=== PATIENT | female | born 1970 | race Two or more races ===

== ENCOUNTER → 2017-04-16 | Outpatient (CLI) | payer BC ==
[2017-04-16 13:29] LABS: EKG EKG PERFORMED
[2017-04-16 14:00] LABS: Basophils # (A) 0.1 k/uL (0-0.2); Basophils % (A) 1 %; CH 30.7; CHCM 32.1; Eosinophils # (A) 0.2 k/uL (0-0.7); Eosinophils % (A) 3 %; HCT 39.7 % (34.0-46.0); HDW 2.19; HGB 13.4 gm/dL (11.4-16.0); Luc # (Auto) 0.21; Luc % (Auto) 3; Lymphocytes % (A) 31 %; MCH 32.4 pg (25.0-35.0); MCHC 33.7 g/dL (31.0-37.0); MCV 96.1 fL (80.0-100.0); Mean Platelet Volume 8.5; Monocytes # (A) 0.4 k/uL (0-1.0); Monocytes % (A) 7 %; Neutrophils # (A) 3.6 k/uL (1.3-7.7); Neutrophils % (A) 55 %; RBC 4.13 m/uL (3.80-5.40); RDW 12.9 % (11.5-15.5); WBC 6.5 k/uL (3.8-10.6); WBC (Perox) 6.85
[2017-04-16 14:13] LABS: Anion Gap 8 mmol/L; Blood Urea Nitrogen 14 mg/dL (7-17); Carbon Dioxide 27 mmol/L (22-30); Chloride 105 mmol/L (98-107); Glucose 87 mg/dL (74-99); Non-African American GFR(MDRD) >60 (>60 ml/min/1.73 sqM); Potassium 4.1 mmol/L (3.5-5.1); Sodium 140 mmol/L (137-145)
== END | disposition home or self-care (01) ==
LOC: LABPAT 13:19
PROVIDERS: ATTEND Obstetrics & Gynecology
DX: Z01.810 Encounter for preprocedural cardiovascular examination (principal); Z01.812 Encounter for preprocedural laboratory examination; I10 Essential (primary) hypertension; N81.10 Cystocele, unspecified
CPT/HCPCS: 36415; 80051; 82565; 82947; 84520; 85025; 86850; 86900; 86901; 87077; 87086; 87186; 93005

== ENCOUNTER 2017-04-20 21:24 | Emergency (ER) | payer BC ==
[2017-04-20] MEDS ORDERED: diphenhydrAMINE 50 MG/ML 1 ML VIAL IVP STA (21:36)
[2017-04-20] MEDS ORDERED: FAMOTIDINE 20 MG/2 ML VIAL IV STA (21:36)
[2017-04-20] MEDS ORDERED: methylPREDNISolone SOD SUCCI 125 MG/2 ML VIAL IV STA (21:36)
--- NOTE | 2017-04-20 21:40 | ED ---
Allergic Reaction HPI - General Chief complaint: Allergic Reaction Stated complaint: Allergic reaction/Chest tightness Time Seen by Provider: 04/20/17 21:32 Source: patient, RN notes reviewed Mode of arrival: ambulatory Limitations: no limitations - History of Present Illness Initial Comments: This is a 38-year-old female who states she is supposed to be undergoing bladder suspension surgery in 3 days who was given Bactrim for the treatment of cold symptoms who took her first dose around noon today started developing redness itching and a fever at times he started taking the second dose. No nausea no vomiting feels some chest heaviness. She denies any chills or sweats no cough or phlegm production she didn't rhinorrhea nonproductive cough no phlegm production no dysuria hematuria no prior ALLERGIES to Bactrim MD Complaint: allergic reaction - Related Data Home Medications Medication Instructions Recorded Confirmed Levothyroxine Sodium [Tirosint] 150 mcg PO DAILY 04/20/17 04/20/17 Losartan Potassium [Cozaar] 50 mg PO DAILY 04/20/17 04/20/17 Sulfamethox-Tmp 800-160Mg [Bactrim 1 tab PO Q12HR 04/20/17 04/20/17 DS 800-160 mg] Previous Rx's Medication Instructions Recorded Famotidine [Pepcid] 20 mg PO BID #10 tablet 04/20/17 predniSONE 20 mg PO BID #10 tab 04/20/17 Allergies Allergy/AdvReac Type Severity Reaction Status Date / Time No Known Allergies Allergy Verified 04/20/17 21:54 Review of Systems ROS Statement: Those systems with pertinent positive or pertinent negative responses have been documented in the HPI. ROS Other: All systems not noted in ROS Statement are negative. Past Medical History Past Medical History: Hypertension History of Any Multi-Drug Resistant Organisms: None Reported Past Surgical History: Cholecystectomy, Hysterectomy Additional Past Surgical History / Comment(s): cone biopsy Past Psychological History: No Psychological Hx Reported Smoking Status: Former smoker Past Alcohol Use History: None Reported Past Drug Use History: None Reported General Exam - General Exam Comments Initial Comments: This is a well-developed well-nourished awake alert oriented 3 female Limitations: no limitations General appearance: alert, anxious Head exam: Present: atraumatic, normocephalic, normal inspection Eye exam: Present: normal appearance, PERRL, EOMI. Absent: scleral icterus, conjunctival injection, periorbital swelling ENT exam: Present: other (Mild posterior pharyngeal hyperemia no exudate seen) Neck exam: Present: normal inspection, full ROM, other (No stridor JVD or bruits ). Absent: tenderness, meningismus, lymphadenopathy Respiratory exam: Present: decreased breath sounds Cardiovascular Exam: Present: normal rhythm, tachycardia, normal heart sounds. Absent: systolic murmur, diastolic murmur, rubs, gallop, clicks GI/Abdominal exam: Present: soft, normal bowel sounds. Absent: distended, tenderness, guarding, rebound, rigid Rectal exam: Present: deferred Extremities exam: Present: normal inspection, full ROM, normal capillary refill. Absent: tenderness, pedal edema, joint swelling, calf tenderness Back exam: Present: full ROM. Absent: tenderness, CVA tenderness (R), CVA tenderness (L), paraspinal tenderness Neurological exam: Present: alert, oriented X3, CN II-XII intact Psychiatric exam: Present: normal affect, normal mood Skin exam: Present: warm, dry, intact, rash Course Vital Signs 04/20/17 04/20/17 21:26 21:57 Temperature 101.3 F H Pulse Rate 111 H 104 H Respiratory 20 18 Rate Blood Pressure 162/85 162/89 O2 Sat by Pulse 97 97 Oximetry Medical Decision Making - Medical Decision Making I did reevaluate patient several occasions she is feeling much improved she does feel tired thus far except for the history of upper respiratory symptoms no source of infection is found the flu swabs are negative. He can be discharged we will withhold antibiotics at this time she'll be placed on appropriate medication for the ALLERGIC reaction. We did discuss the avoidance of heat and using cool compresses or cool environments when necessary. She is a follow-up with her doctor regarding the surgery in 3 days - Lab Data Result diagrams: 04/20/17 21:58 04/20/17 21:58 Lab Results 04/20/17 04/20/17 04/20/17 Range/Units 21:35 21:58 21:58 WBC 9.9 (3.8-10.6) k/uL RBC 4.37 (3.80-5.40) m/uL Hgb 13.6 (11.4-16.0) gm/dL Hct 42.0 (34.0-46.0) % MCV 96.1 (80.0-100.0) fL MCH 31.0 (25.0-35.0) pg MCHC 32.3 (31.0-37.0) g/dL RDW 13.5 (11.5-15.5) % Plt Count 183 (150-450) k/uL Neutrophils % 81 % Lymphocytes % 9 % Monocytes % 4 % Eosinophils % 4 % Basophils % 0 % Neutrophils # 8.0 H (1.3-7.7) k/uL Lymphocytes # 0.9 L (1.0-4.8) k/uL Monocytes # 0.4 (0-1.0) k/uL Eosinophils # 0.4 (0-0.7) k/uL Basophils # 0.0 (0-0.2) k/uL Sodium (137-145) mmol/L Potassium (3.5-5.1) mmol/L Chloride (98-107) mmol/L Carbon Dioxide (22-30) mmol/L Anion Gap mmol/L BUN (7-17) mg/dL Creatinine (0.52-1.04) mg/dL Est GFR (MDRD) Af Amer (>60 ml/min/1.73 sqM) Est GFR (MDRD) Non-Af (>60 ml/min/1.73 sqM) Glucose (74-99) mg/dL Calcium (8.4-10.2) mg/dL Magnesium (1.6-2.3) mg/dL Total Bilirubin (0.2-1.3) mg/dL AST (14-36) U/L ALT (9-52) U/L Alkaline Phosphatase (38-126) U/L Total Creatine Kinase 38 (30-135) U/L CK-MB (CK-2) 0.6 (0.0-2.4) ng/mL CK-MB (CK-2) Rel Index 1.6 Troponin I <0.012 (0.000-0.034) ng/mL Total Protein (6.3-8.2) g/dL Albumin (3.5-5.0) g/dL Influenza Type A RNA Not Detected (Not Detectd) Influenza Type B (PCR) Not Detected (Not Detectd) 04/20/17 Range/Units 21:58 WBC (3.8-10.6) k/uL RBC (3.80-5.40) m/uL Hgb (11.4-16.0) gm/dL Hct (34.0-46.0) % MCV (80.0-100.0) fL MCH (25.0-35.0) pg MCHC (31.0-37.0) g/dL RDW (11.5-15.5) % Plt Count (150-450) k/uL Neutrophils % % Lymphocytes % % Monocytes % % Eosinophils % % Basophils % % Neutrophils # (1.3-7.7) k/uL Lymphocytes # (1.0-4.8) k/uL Monocytes # (0-1.0) k/uL Eosinophils # (0-0.7) k/uL Basophils # (0-0.2) k/uL Sodium 138 (137-145) mmol/L Potassium 4.3 (3.5-5.1) mmol/L Chloride 102 (98-107) mmol/L Carbon Dioxide 28 (22-30) mmol/L Anion Gap 8 mmol/L BUN 12 (7-17) mg/dL Creatinine 0.83 (0.52-1.04) mg/dL Est GFR (MDRD) Af Amer >60 (>60 ml/min/1.73 sqM) Est GFR (MDRD) Non-Af >60 (>60 ml/min/1.73 sqM) Glucose 108 H (74-99) mg/dL Calcium 9.6 (8.4-10.2) mg/dL Magnesium 1.8 (1.6-2.3) mg/dL Total Bilirubin 0.3 (0.2-1.3) mg/dL AST 18 (14-36) U/L ALT 30 (9-52) U/L Alkaline Phosphatase 47 (38-126) U/L Total Creatine Kinase (30-135) U/L CK-MB (CK-2) (0.0-2.4) ng/mL CK-MB (CK-2) Rel Index Troponin I (0.000-0.034) ng/mL Total Protein 7.3 (6.3-8.2) g/dL Albumin 4.3 (3.5-5.0) g/dL Influenza Type A RNA (Not Detectd) Influenza Type B (PCR) (Not Detectd) - EKG Data -: EKG Interpreted by Me EKG shows normal: sinus rhythm (Sinus rhythm rate of 101 KS interval 150 to QRS 86 QT since QTC of 344/446 nonspecific T-wave configuration) - Radiology Data Radiology results: report reviewed (I did review the imaging and reports no acute findings), image reviewed Disposition Clinical Impression: Allergic reaction, Adverse reaction to drug, Fever Disposition: HOME SELF-CARE Condition: Good Instructions: Antibiotic Medication Allergy (ED), Cold Compress or Soak (ED) Additional Instructions: Spgf-esd-qhdoahv Benadryl 25 mg every 6 hours when necessary for the ALLERGIC reaction. Prescriptions: Famotidine [Pepcid] 20 mg PO BID #10 tablet predniSONE 20 mg PO BID #10 tab Referrals: Rachell Orozco MD [Primary Care Provider] - 1-2 days
[2017-04-20 22:03] VITALS: RESP 18
[2017-04-20 22:09] LABS: Basophils % (A) 0 %; CH 31.3; CHCM 32.8; Eosinophils # (A) 0.4 k/uL (0-0.7); Eosinophils % (A) 4 %; HDW 2.16; HGB 13.6 gm/dL (11.4-16.0); Luc # (Auto) 0.07; Luc % (Auto) 1; Lymphocytes # (A) 0.9 k/uL (1.0-4.8); Lymphocytes % (A) 9 %; MCHC 32.3 g/dL (31.0-37.0); MCV 96.1 fL (80.0-100.0); Mean Platelet Volume 8.4; Monocytes # (A) 0.4 k/uL (0-1.0); Monocytes % (A) 4 %; Neutrophils % (A) 81 %; RBC 4.37 m/uL (3.80-5.40); RDW 13.5 % (11.5-15.5); WBC 9.9 k/uL (3.8-10.6)
[2017-04-20] MEDS ORDERED: IBUPROFEN 800 MG TAB PO STA (22:09)
[2017-04-20 22:19] LABS: ALT 30 U/L (9-52); AST 18 U/L (14-36); Alkaline Phosphatase 47 U/L (38-126); Anion Gap 8 mmol/L; Blood Urea Nitrogen 12 mg/dL (7-17); Calcium 9.6 mg/dL (8.4-10.2); Carbon Dioxide 28 mmol/L (22-30); Chloride 102 mmol/L (98-107); Glucose 108 mg/dL (74-99); Magnesium 1.8 mg/dL (1.6-2.3); Non-African American GFR(MDRD) >60 (>60 ml/min/1.73 sqM); Potassium 4.3 mmol/L (3.5-5.1); Sodium 138 mmol/L (137-145); Total Bilirubin 0.3 mg/dL (0.2-1.3); Total Protein 7.3 g/dL (6.3-8.2)
--- NOTE | 2017-04-20 22:22 | XR ---
EXAMINATION TYPE: XR chest 2V DATE OF EXAM: 04/20/2017 COMPARISON: NONE HISTORY: Cough and swelling TECHNIQUE: Frontal and lateral views of the chest are obtained. FINDINGS: Heart and mediastinum are normal. Lungs are clear of consolidation. There are small linear density in the left midlung. There is no pleural effusion. Bony thorax is intact. IMPRESSION: Minimal subsegmental atelectasis on the left side. Normal heart.
[2017-04-20 22:27] LABS: Creatine Kinase 38 U/L (30-135)
[2017-04-20 22:40] LABS: Creatine Kinase MB 0.6 ng/mL (0.0-2.4); Troponin I <0.012 ng/mL (0.000-0.034)
[2017-04-20] MEDS ORDERED: SODIUM CHLORIDE 0.9% 500 ML IV STA (22:44)
[2017-04-20 23:18] VITALS: BP 132/73; PULSE 100
[2017-04-20 23:24] VITALS: TEMP 102.2
[2017-04-20] MEDS ORDERED: ACETAMINOPHEN TAB 500 MG TAB PO STA (23:25)
--- NOTE | 2017-04-20 23:25 | ED ---
Medical Decision Making - Lab Data Result diagrams: 04/20/17 21:58 04/20/17 21:58 Lab Results 04/20/17 04/20/17 04/20/17 Range/Units 21:35 21:58 21:58 WBC 9.9 (3.8-10.6) k/uL RBC 4.37 (3.80-5.40) m/uL Hgb 13.6 (11.4-16.0) gm/dL Hct 42.0 (34.0-46.0) % MCV 96.1 (80.0-100.0) fL MCH 31.0 (25.0-35.0) pg MCHC 32.3 (31.0-37.0) g/dL RDW 13.5 (11.5-15.5) % Plt Count 183 (150-450) k/uL Neutrophils % 81 % Lymphocytes % 9 % Monocytes % 4 % Eosinophils % 4 % Basophils % 0 % Neutrophils # 8.0 H (1.3-7.7) k/uL Lymphocytes # 0.9 L (1.0-4.8) k/uL Monocytes # 0.4 (0-1.0) k/uL Eosinophils # 0.4 (0-0.7) k/uL Basophils # 0.0 (0-0.2) k/uL Sodium (137-145) mmol/L Potassium (3.5-5.1) mmol/L Chloride (98-107) mmol/L Carbon Dioxide (22-30) mmol/L Anion Gap mmol/L BUN (7-17) mg/dL Creatinine (0.52-1.04) mg/dL Est GFR (MDRD) Af Amer (>60 ml/min/1.73 sqM) Est GFR (MDRD) Non-Af (>60 ml/min/1.73 sqM) Glucose (74-99) mg/dL Calcium (8.4-10.2) mg/dL Magnesium (1.6-2.3) mg/dL Total Bilirubin (0.2-1.3) mg/dL AST (14-36) U/L ALT (9-52) U/L Alkaline Phosphatase (38-126) U/L Total Creatine Kinase 38 (30-135) U/L CK-MB (CK-2) 0.6 (0.0-2.4) ng/mL CK-MB (CK-2) Rel Index 1.6 Troponin I <0.012 (0.000-0.034) ng/mL Total Protein (6.3-8.2) g/dL Albumin (3.5-5.0) g/dL Influenza Type A RNA Not Detected (Not Detectd) Influenza Type B (PCR) Not Detected (Not Detectd) 04/20/17 Range/Units 21:58 WBC (3.8-10.6) k/uL RBC (3.80-5.40) m/uL Hgb (11.4-16.0) gm/dL Hct (34.0-46.0) % MCV (80.0-100.0) fL MCH (25.0-35.0) pg MCHC (31.0-37.0) g/dL RDW (11.5-15.5) % Plt Count (150-450) k/uL Neutrophils % % Lymphocytes % % Monocytes % % Eosinophils % % Basophils % % Neutrophils # (1.3-7.7) k/uL Lymphocytes # (1.0-4.8) k/uL Monocytes # (0-1.0) k/uL Eosinophils # (0-0.7) k/uL Basophils # (0-0.2) k/uL Sodium 138 (137-145) mmol/L Potassium 4.3 (3.5-5.1) mmol/L Chloride 102 (98-107) mmol/L Carbon Dioxide 28 (22-30) mmol/L Anion Gap 8 mmol/L BUN 12 (7-17) mg/dL Creatinine 0.83 (0.52-1.04) mg/dL Est GFR (MDRD) Af Amer >60 (>60 ml/min/1.73 sqM) Est GFR (MDRD) Non-Af >60 (>60 ml/min/1.73 sqM) Glucose 108 H (74-99) mg/dL Calcium 9.6 (8.4-10.2) mg/dL Magnesium 1.8 (1.6-2.3) mg/dL Total Bilirubin 0.3 (0.2-1.3) mg/dL AST 18 (14-36) U/L ALT 30 (9-52) U/L Alkaline Phosphatase 47 (38-126) U/L Total Creatine Kinase (30-135) U/L CK-MB (CK-2) (0.0-2.4) ng/mL CK-MB (CK-2) Rel Index Troponin I (0.000-0.034) ng/mL Total Protein 7.3 (6.3-8.2) g/dL Albumin 4.3 (3.5-5.0) g/dL Influenza Type A RNA (Not Detectd) Influenza Type B (PCR) (Not Detectd) Disposition Clinical Impression: Allergic reaction, Adverse reaction to drug, Fever, Upper respiratory infection Disposition: HOME SELF-CARE Condition: Good Instructions: Antibiotic Medication Allergy (ED), Cold Compress or Soak (ED), Upper Respiratory Infection (ED) Additional Instructions: Mbve-dth-awgtznu Benadryl 25 mg every 6 hours when necessary for the ALLERGIC reaction. Prescriptions: Famotidine [Pepcid] 20 mg PO BID #10 tablet predniSONE 20 mg PO BID #10 tab Referrals: Rachell Orozco MD [Primary Care Provider] - 1-2 days
== END 2017-04-20 23:30 | disposition home or self-care (01) ==
LOC: EC 21:24
DX: J06.9 Acute upper respiratory infection, unspecified (principal); T37.0X5A Adverse effect of sulfonamides, initial encounter; I10 Essential (primary) hypertension; Z87.891 Personal history of nicotine dependence; Z79.899 Other long term (current) drug therapy
CPT/HCPCS: 36415; 93005; 80053; 82550; 82553; 83735; 84484; 85025; 87040; 87502; 71020; 99284; 96374; 96375 ×2; J1200; J2930

== ENCOUNTER → 2017-07-24 | Outpatient (CLI) | payer BC ==
--- NOTE | 2017-07-26 12:04 | MM ---
Reason for exam: screening (asymptomatic). Physical Findings: A clinical breast exam by your physician is recommended on an annual basis and results should be correlated with mammographic findings. MG Screening Mammo w CAD Bilateral CC and MLO view(s) were taken. No prior studies available for comparison. There are scattered fibroglandular densities. No suspicious abnormality. No significant changes when compared with prior studies. ASSESSMENT: Negative, BI-RAD 1 RECOMMENDATION: Routine screening mammogram of both breasts in 1 year.
== END | disposition home or self-care (01) ==
LOC: RADMAMWWP 07:51
PROVIDERS: ATTEND Obstetrics & Gynecology
DX: Z12.31 Encounter for screening mammogram for malignant neoplasm of breast (principal)
CPT/HCPCS: 77067

== ENCOUNTER → 2018-09-27 | Outpatient (CLI) | payer BC ==
--- NOTE | 2018-09-28 10:53 | MM ---
Reason for exam: screening (asymptomatic). Last mammogram was performed 1 year and 2 months ago. Physical Findings: A clinical breast exam by your physician is recommended on an annual basis and results should be correlated with mammographic findings. MG Screening Mammo w CAD Bilateral CC and MLO view(s) were taken. Prior study comparison: July 24, 2017, bilateral MG screening mammo w CAD. There are scattered fibroglandular densities. There is no discrete abnormality. No significant changes when compared with prior studies. ASSESSMENT: Negative, BI-RAD 1 RECOMMENDATION: Routine screening mammogram of both breasts in 1 year.
== END | disposition home or self-care (01) ==
LOC: RADMAMWWP 10:42
PROVIDERS: ATTEND Family Medicine
DX: Z12.31 Encounter for screening mammogram for malignant neoplasm of breast (principal)
CPT/HCPCS: 77067

== ENCOUNTER → 2019-10-25 | Outpatient (CLI) | payer BC ==
--- NOTE | 2019-10-25 10:40 | US ---
EXAMINATION TYPE: US thyroid st tissue head/neck DATE OF EXAM: 10/25/2019 COMPARISON: NONE CLINICAL HISTORY: E03.9 Hypothyroidism, R53.83 Fatigue. GLAND SIZE: Right Lobe: 4.3 x 1.5 x 1.2 cm Overall Parenchyma: heterogenous Left Lobe: 2.8 x 1.0 x 1.3 cm Overall Parenchyma: heterogeneous Isthmus Thickness: 0.2 cm NODULES RIGHT: # of nodules measured on right: 1 1. 0.6 x 0.2 x 0.3cm anechoic cystic nodule at the mid pole with well-defined margins. This nodule is wider than tall and shows no intranodular vascularity. No prior LEFT: # of nodules measured on left: 1 1. 1.5 X 0.6 x 1.0 cm hypoechoic mixed nodule at the mid pole with well-defined margins. This nodu le is wider than tall and shows no intranodular vascularity. *No prior ISTHMUS: # of nodules measured in the isthmus: 0 Bilateral neck scanned, no evidence of lymphadenopathy. Heterogeneous small thyroid with particularly small left thyroid lobe. IMPRESSION: No concerning nodules. A left-sided 1.5 cm nodule is predominantly cystic, TR 1 lesion .
== END | disposition home or self-care (01) ==
LOC: RADUSWWP 10:06
PROVIDERS: ATTEND Family Medicine
DX: E04.1 Nontoxic single thyroid nodule (principal); E03.9 Hypothyroidism, unspecified; R53.83 Other fatigue
CPT/HCPCS: 76536

== ENCOUNTER → 2019-12-27 | Outpatient (CLI) | payer BC ==
--- NOTE | 2020-01-01 11:20 | MM ---
Reason for exam: screening (asymptomatic). Last mammogram was performed 1 year and 3 months ago. History: Family history of breast cancer in maternal cousin. Physical Findings: A clinical breast exam by your physician is recommended on an annual basis and results should be correlated with mammographic findings. MG 3D Screening Mammo W/Cad Bilateral CC and MLO view(s) were taken. Prior study comparison: September 27, 2018, bilateral MG screening mammo w CAD. July 24, 2017, bilateral MG screening mammo w CAD. There are scattered fibroglandular densities. No significant changes when compared with prior studies. ASSESSMENT: Negative, BI-RAD 1 RECOMMENDATION: Routine screening mammogram of both breasts in 1 year.
== END | disposition home or self-care (01) ==
LOC: RADMAMWWP 12:13
PROVIDERS: ATTEND Family Medicine
DX: Z12.31 Encounter for screening mammogram for malignant neoplasm of breast (principal)
CPT/HCPCS: 77063; 77067

== ENCOUNTER → 2020-05-10 | Outpatient (CLI) | payer BC | END | disposition home or self-care (01) | LOC: LABWHC1 11:54 | PROVIDERS: ATTEND Family Medicine | DX: Z20.828 Contact with and (suspected) exposure to other viral communicable diseases (principal) | CPT/HCPCS: U0003; C9803 ==

== ENCOUNTER → 2020-08-06 | Outpatient (CLI) | payer BC ==
--- NOTE | 2020-08-06 11:50 | CT ---
EXAMINATION TYPE: CT abdomen w con DATE OF EXAM: 08/06/2020 COMPARISON: None HISTORY: Right side upper abdominal pain x3 weeks CT DLP: 1490 mGycm Automated exposure control for dose reduction was used. TECHNIQUE: Helical acquisition of images was performed from the lung bases through the top of iliac crest to include entire abdomen. CONTRAST: Performed with Oral Contrast and with IV Contrast, patient injected with 100 mL of Isovue 300. FINDINGS: LUNG BASES: Subsegmental changes posteriorly involving the lungs most typical of atelectasis. Heart s ize prominent.. LIVER/GB: Postcholecystectomy changes are seen. PANCREAS: No significant abnormality is seen. SPLEEN: No significant abnormality is seen. ADRENALS: No significant abnormality is seen. KIDNEYS: Hypodensities within the kidneys are subcentimeter and too small to characterize but statist ically most likely related to cysts. BOWEL: No significant abnormality is seen. LYMPH NODES: No significant abnormality is seen. OSSEOUS STRUCTURES: Hypertrophic and degenerative change of the spine. OTHER: Small fat-containing periumbilical hernia. Small hiatal hernia noted. IMPRESSION: 1. Postcholecystectomy changes with no acute process identified.
== END ==
LOC: RADCTMAIN 10:16
PROVIDERS: ATTEND Family Medicine
DX: R10.11 Right upper quadrant pain (principal); Z90.49 Acquired absence of other specified parts of digestive tract
CPT/HCPCS: 74160; Q9967

== ENCOUNTER → 2022-09-08 | Outpatient (CLI) | payer BC ==
--- NOTE | 2022-09-09 07:38 | XR ---
EXAMINATION TYPE: XR Hip RT and AP Pelvis DATE OF EXAM: 09/08/2022 COMPARISON: None HISTORY: Pain radiating down right leg TECHNIQUE: 2 view right hip supplemented with an AP pelvis FINDINGS: Right femoral head articulates with the acetabulum. There is loss of the joint space. Some cam deformity or femoral head remodeling may be present. Some femoral head spurring is present. No ac concepcion fractures are evident. Left femoral head articulate to the acetabulum. Mild joint space narrowing is present. Sacroiliac joints and symphysis pubis are normal Follow up exams can be performed 7-10 d ays of acute trauma for continued pain. IMPRESSION: 1. Moderate to advanced degenerative changes right hip
--- NOTE | 2022-09-09 07:42 | XR ---
EXAMINATION TYPE: XR lumbosacral spine min 4V DATE OF EXAM: 09/08/2022 COMPARISON: None HISTORY: Pain right leg TECHNIQUE: 5 view lumbar spine FINDINGS: There are 5 lumbar-type vertebral bodies. Pedicles are intact. T12 ribs are very rudimentar y. There may be attempted lumbarization of T12. Facet degenerative changes present throughout the lum bar spine. No spondylolytic defects are evident. Mild spondylosis is present. There is degenerative d isc change L5-S1 and L4-5. Posterior disc space narrowing is present L3-4. IMPRESSION: 1. Degenerative disc change within the lower half of the lumbar spine. Follow-up MRI can be performe d as clinically indicated
== END | disposition home or self-care (01) ==
LOC: RADXRMAIN 10:34
PROVIDERS: ATTEND Family Medicine
DX: M16.11 Unilateral primary osteoarthritis, right hip (principal); M51.36 Other intervertebral disc degeneration, lumbar region; R10.2 Pelvic and perineal pain
CPT/HCPCS: 72110; 73502

== ENCOUNTER → 2022-09-30 | Outpatient (CLI) | payer BC ==
[2022-09-30 17:43] LABS: Partial Thromboplastin Time 22.1 sec (22.0-30.0); Prothrombin Time 10.3 sec (9.0-12.0)
[2022-10-01 01:50] LABS: ALT 18 U/L (8-44); AST 14 U/L (13-35); African American GFR (CKD) 112.9 (60.0-200.0); Albumin 4.3 g/dL (3.8-4.9); Albumin/Globulin Ratio 1.85 (1.60-3.17); Alkaline Phosphatase 55 U/L (41-126); Blood Urea Nitrogen 13.4 mg/dL (9.0-27.0); Calcium 9.8 mg/dL (8.7-10.3); Carbon Dioxide 31.5 mmol/L (20.0-27.5); Chloride 103 mmol/L (96-109); Globulin 2.3 g/dL (1.6-3.3); Glucose 100 mg/dL (70-110); Non-African American GFR(CKD) 97.4 (60.0-200.0); Potassium 3.7 mmol/L (3.5-5.5); Sodium 144 mmol/L (135-145); Total Bilirubin <0.15 mg/dL (0.30-1.20); Total Protein 6.6 g/dL (6.2-8.2)
[2022-10-01 02:11] LABS: HCT 39.6 % (37.2-46.3); HGB 13.1 g/dL (12.0-15.0); MCH 31.2 pg (27.0-32.0); MCHC 33.1 g/dL (32.0-37.0); MCV 94.3 fL (80.0-97.0); Mean Platelet Volume 12.1 fL (9.5-12.2); NRBC Per 100 WBC 0 /100 WBCS (0.0-0.0); Platelet Count 212 X 10*3/uL (140-440); RDW 12.7 % (11.5-14.5); WBC 8.61 X 10*3/uL (4.50-10.00)
[2022-10-01 02:12] LABS: Appearance,Urine Cloudy (Clear); Bilirubin,Urine Negative (Negative); Blood,Urine Negative (Negative); Color,Urine Yellow (Yellow); Ketones,Urine Negative (Negative); Nitrite,Urine Negative (Negative); PH, Urine 8.5 (5.0-8.0); Specific Gravity,Urine 1.012 (1.001-1.030); Urobilinogen,Urine 0.2 (0.2,1.0)
[2022-10-01 02:20] LABS: Bacteria,Urine None Seen /HPF (None Seen)
== END | disposition home or self-care (01) ==
LOC: LABPAT 16:16
PROVIDERS: ATTEND Orthopaedic Surgery
DX: Z01.812 Encounter for preprocedural laboratory examination (principal); M16.11 Unilateral primary osteoarthritis, right hip
CPT/HCPCS: 80053; 81001; 83036; 85027; 85610; 85730; 87070

== ENCOUNTER 2022-10-09 08:42 | Day surgery (SDC) | payer BC ==
[2022-10-05 12:05] VITALS: BMI 34.3
[~2022-10-09 08:42] MED LIST: ACETAMINOPHEN TAB 500 MG TAB PO PRN; DEXAMETHASONE SOD PHOSPHATE 10 MG/ML 1 ML VIAL IV PRN; DOCUSATE 100 MG CAP PO PRN; FAMOTIDINE 20 MG/2 ML VIAL IVP PRN; HYDROmorphone 0.5 MG/0.5 ML SYRINGE IVP PRN; KETOROLAC 15 MG/ML 1 ML VIAL IVP PRN; LACTATED RINGERS 1,000 ML IV SCH; MIDAZOLAM 2 MG/2 ML VIAL IV PRN; ONDANSETRON 4 MG/2 ML VIAL IVP PRN; ROPIVACAINE/EPI/CLONIDINE/KET 50 ML SYRINGE MISCELLANE PRN; TRANEXAMIC ACID IN NACL,ISO-OS 1,000 MG in SALINE 1 100ML.BAG IV PRN; TRANEXAMIC ACID IN NACL,ISO-OS 1,000 MG in SALINE 1 100ML.BAG IVPB PRN; oxyCODONE ER 10 MG TAB.ER.12H PO PRN
[2022-10-09 09:03] VITALS: BP 131/78; PULSE 91; RESP 18; TEMP 97.5
== END 2022-10-09 11:08 | disposition home or self-care (01) ==
LOC: OR 08:42
PROVIDERS: ATTEND Orthopaedic Surgery
DX: Z53.9 Procedure and treatment not carried out, unspecified reason (principal); M16.11 Unilateral primary osteoarthritis, right hip
CPT/HCPCS: 86900; 86901; 86850; J1100; J2405; J1885

== ENCOUNTER 2022-10-16 09:33 | Day surgery (SDC) | payer BC ==
[~2022-10-16 09:33] MED LIST changes: -LACTATED RINGERS 1,000 ML IV SCH
[2022-10-16] MEDS: LACTATED RINGERS 1,000 ML IV SCH ×2 (10:00→15:06)
[2022-10-16] MEDS ORDERED: DEXAMETHASONE SOD PHOSPHATE 4 MG/ML 1 ML VIAL IVP ONE (10:31)
[2022-10-16] MEDS ORDERED: MIDAZOLAM 2 MG/2 ML VIAL IVP ONE (10:39)
[2022-10-16] MEDS ORDERED: DEXAMETHASONE SOD PHOSPHATE 4 MG/ML 1 ML VIAL ONE (10:56)
[2022-10-16] MEDS ORDERED: LIDOCAINE 2% INJ 20 MG/ML (2 ML VIAL) ONE (10:56)
[2022-10-16] MEDS ORDERED: PHENYLEPHRINE-0.9% NACL SYG 1,000 MCG/10 ML SYRINGE ONE (10:56)
[2022-10-16] MEDS ORDERED: ROPIVACAINE 5 MG/ML 30 ML VIAL ONE (10:56)
[2022-10-16] MEDS ORDERED: TRANEXAMIC ACID IN NACL,ISO-OS 1,000 MG/100 ML BAG ONE (10:56)
[2022-10-16] MEDS ORDERED: GLYCOPYRROLATE 0.2 MG/ML 2 ML VIAL ONE (10:56)
[2022-10-16] MEDS ORDERED: NEOSTIGMINE 1 MG/ML 10 ML VIAL ONE (10:56)
[2022-10-16] MEDS ORDERED: ROCURONIUM 10 MG/ML (5 ML VIAL) IV ONE (10:56)
[2022-10-16] MEDS ORDERED: SUCCINYLCHOLINE CHLORIDE 200 MG/10 ML VIAL IV ONE (10:56)
[2022-10-16] MEDS ORDERED: PROPOFOL 10 MG/ML 20 ML VIAL IV ONE (10:56)
[2022-10-16] MEDS ORDERED: fentaNYL (PF) 50 MCG/ML 2 ML AMP ONE (10:56)
--- NOTE | 2022-10-16 11:49 | P.ANPRN ---
Procedure Note - Anesthesia - Nerve Block Performed Right James Single Time Out Performed: Yes Date of Procedure: 10/16/22 Procedure Start Time: 10:38 Procedure Stop Time: 10:45 Location of Patient: PreOp Indication: Acute Post-Operative Pain, Requested by Surgeon Sedation Type: Sedate with meaningful contact maintained Preparation: Sterile Prep, Sterile Dressing Position: Supine Catheter: None Needle Types: Facet Needle Gauge: 20 Ultrasound used to visualize needle placement: Yes Ultrasound used to observe medication spread: Yes Injectate: 0.5% Ropivacaine (see comment for volume) (30 ml + decadron 4 mg) Blood Aspirated: No Pain Paresthesia on Injection Noted: No Resistance on Injection: Normal Image Stored and Saved: Yes Events: Uneventful and Well Tolerated
[2022-10-16] MEDS ORDERED: LACTATED RINGERS 1,000 ML IV ONE (12:32)
--- NOTE | 2022-10-16 13:02 | FL ---
EXAMINATION TYPE: FL guidance operating room, XR Hip Limited RT DATE OF EXAM: 10/16/2022 CLINICAL HISTORY: Right hip pain and osteoarthritis TECHNIQUE: Fluoroscopy. Intraoperative limited views right hip. COMPARISON: Pelvic and right hip x-ray September 08, 2022. FINDINGS: Fluoroscopic guidance was provided during right hip replacement procedure performed by Dr. Andino. A total of 32 seconds of fluoroscopic time was utilized during the procedure and 6 spot i mages was acquired. Total dose area product (DAP) in uGy*m?, mGy*cm? (or similar: 1.4210. Images acquired show metallic hardware from right hip arthroplasty satisfactory in position on fronta l projection. IMPRESSION: As Above.
[2022-10-16] MEDS ORDERED: HYDROmorphone 1 MG/ML 1 ML SYRINGE IVP PRN (13:31)
[2022-10-16] MEDS ORDERED: hydrOXYzine pamoate 25 MG CAP PO PRN (13:31)
[2022-10-16] MEDS ORDERED: ONDANSETRON 4 MG/2 ML VIAL IVP PRN (13:31)
[2022-10-16] MEDS ORDERED: NALOXONE 0.4 MG/ML 1 ML VIAL IV PRN (13:31)
[2022-10-16] MEDS ORDERED: HYDROmorphone 0.5 MG/0.5 ML SYRINGE IVP PRN ×2 (13:31)
--- NOTE | 2022-10-16 13:40 | P.OP ---
Date of Procedure: 10/16/22 Preoperative Diagnosis: Severe right hip osteoarthritis Postoperative Diagnosis: Same Procedure(s) Performed: 1. Right direct anterior total hip arthroplasty 2. Application of negative pressure incisional wound VAC, right hip, less than 50 cm, including DME (33506) Implants: 1. Damaris Trident II Acetabular Cup, Size #50 2. [place] Insignia Size # 3 Femoral Stem, Standard Offset 3. Biolox delta femoral head, 36 mm, +0 neck Anesthesia: MARK, regional Surgeon: Saul Andino Mill Roll Rewinder #1: Garrison Baker Estimated Blood Loss (ml): 200 IV fluids (ml): 1,200 Pathology: none sent Condition: stable Disposition: PACU Indications for Procedure: I had a long discussion with the patient in the office on the potential risks and complications of an elective total hip replacement through a direct anterior approach. Risks discussed include, but are certainly not limited to, risks from anesthesia, superficial infection requiring local wound care or antibiotics, deep kasey-prosthetic joint infection and the treatment required to eradicate infection, intraoperative fracture, postoperative periprosthetic fracture, damage to local blood vessels or nerves particularly the lateral femoral cutaneous nerve, delayed wound healing requiring local wound care or possibly surgical debridement, hip dislocation, leg length discrepancy, soft tissue irritation around the total hip implant such as iliopsoas tendinitis or trochanteric bursitis, wear and osteolysis from the implants, squeaking or audible noises, groin pain, thigh pain, heterotopic ossification, stiffness, aseptic loosening of the implants, dissatisfaction with surgical outcome, need for revision surgery, DVT, PE, swelling of the operative extremity, acute coronary event, stroke, failure to thrive, and possibly loss of life or limb. The patient understands that while these are the most common complications after an elective hip replacement there are certainly other less common complications possible. They were given ample time to ask questions regarding the potential complications of a hip replacement. Following our discussion the patient provided their verbal and written consent to go forward with an elective total hip replacement. Operative Findings: Severe right hip arthritis Description of Procedure: The patient was identified in the preoperative holding area and the correct hip was marked with my initials. I reviewed the procedure and consent with the patient. All of their questions were answered. The patient was then brought back into the operating room by anesthesia. While on the [facility] anesthesia was administered by the anesthesia team. Preoperative antibiotics and tranexamic acid were also given. After the patient was under anesthesia I examined their ankles to determine their preoperative leg length discrepancy. The skin over the anterior aspect of the hip was shaved to remove hair over the site of planned incision. Both feet and ankles were padded with webril and boots for the [place] were applied. The patient was then carefully transferred onto the [place] table. A perineal post was immediately placed. The arms were placed on arm holders and were well-padded. Both boots were secured to the spars on the [place] table. The patient was positioned so that the pelvis was centered over the post. Nonsterile drapes were applied. A timeout was performed identifying the correct patient, operative extremity, and procedure. At this point fluoroscopy was brought in to take preoperative images of the pelvis and operative hip. Using the standing AP pelvis from the office as a template, a comparable image was obtained with fluoroscopy. A metallic bar was used to create a bi-ischial line for use as a reference to leg length adjustments during the procedure. Global offset was also measured on both the operative and nonoperative leg. Fluoroscopy was then brought out and a pre-scrub using a chlorhexidine scrub brush was performed. The operative limb was then prepped and draped in the standard sterile fashion. An anterior longitudinal incision was made lateral and distal to the ASIS. The skin and subcutaneous tissues were incised sharply. The underlying tensor fascia was identified and incised in its midportion. The fascia was dissected free from the underlying muscle and the muscle belly was retracted. A blunt tipped cobra retractor was placed over the superior neck under the muscle fibers of the gluteus minimus. The deep enveloping fascia of the tensor was incised. The anterior leash of vessels were then identified and cauterized. The fascia between the rectus and the capsule was then incised and the pre-capsular fat was excised. A second Cobra was placed inferior to the neck. The interval between the rectus and iliocapsularis and the hip capsule was developed and a retractor was placed carefully over the anterior rim of the acetabulum. A T-shaped anterior capsulotomy was performed. The superior capsular leaflet was left in place in the inferior capsular flap was excised. The Cobra retractors were placed intracapsularly. We then made a femoral neck osteotomy according to preoperative and intraoperative templating and confirmed the level of the osteotomy using fluoroscopic imaging. The femoral head was removed, passed off to the back table, and sized. The superior capsular flap was excised. Retractors were placed circumferentially exposing the acetabulum. We then circumferentially debrided the acetabulum free of labrum and osteophytes. The pulvinar was removed to fully visualize the cotyloid fossa. We then sequentially reamed to achieve peripheral fit and excellent bleeding subchondral bone. The socket was thoroughly irrigated. The acetabular component was impacted into the appropriate position using fluoroscopy to guide version, inclination, and depth of insertion taking care to have a comparable image of the AP pelvis to the standing image taken in the office. An excellent press-fit was achieved and final position was confirmed using fluoroscopy. The press fit was augmented with bony cancellus dome screws. The liner was then impacted into the socket. Attention was then turned to the femur. The remnant dorsal lateral capsule was excised. The short external rotators were visible and protected. A bone hook was used to confirm appropriate translation of the trochanter away from the acetabulum. The leg was then extended and adducted and the bone hook was used to elevate the femur for broaching. A box osteotome and blunt tipped canal sound was then utilized to gain access to the femoral canal. We then sequentially broached the femur in appropriate anteversion until excellent torsional stability was achieved. The neck cut was brought flush to the trial broach with a calcar planar. A trial neck and head were then placed onto the broach and the hip was atraumatically reduced under direct visualization. External rotation to 90 was performed to assess stability. Fluoroscopy was brought in. An AP and lateral fluoroscopic image of the proximal femur was obtained to assess position and fill of the trial broach. An AP of the pelvis was then obtained and matched to the preoperative image taken. A bi-ischial bar was then placed and measurements were taken to assess changes in length and offset. The hip was then carefully dislocated, the proximal femur was exposed, and the trial implants were removed. The wound and proximal femur was thoroughly irrigated using sterile saline and pulsatile lavage. The final femoral implant was dispensed and gently tapped into place generating an excellent press-fit. The trunnion was cleansed and the final head was tapped into place to engage the Felder taper. The acetabulum was irrigated and visuali zed to be free of debris. The hip was carefully reduced. Stability was checked clinically with external rotation to 90 and there was no evidence of instability. Final fluoroscopic images were taken. The wound was then thoroughly irrigated and soaked with a dilute Betadine rinse for 3 minutes. 3 L of sterile saline was irrigated through the wound using pulsatile lavage. Local anesthetic cocktail was injected into the soft tissues around the surgical field. A deep drain was placed. The wound was then closed in layers. A sterile dressing was placed over the surgical incision and drain site. The drapes were taken down and the patient was carefully transferred off of the [place] table. Following removal of the boots the leg lengths felt acceptable. The patient was then taken to recovery room having tolerated the procedure well. Garrison Baker PA-C was required as a skilled management assistant for patient positioning, surgical exposure, retraction, placement of implants, and closure of the surgical wound. PLAN: The patient can weight-bear as tolerated on the operative extremity. 2 doses of postoperative antibiotics. DVT prophylaxis with aspirin 81 mg twice a day based on preoperative risk stratification. Physical therapy for gait training. Discontinue drain postoperative day #1 if output is less than 100 mL per shift.
[2022-10-16] MEDS ORDERED: ONDANSETRON 4 MG/2 ML VIAL IVP ONE (13:51)
[2022-10-16] MEDS ORDERED: droPERidol 5 MG/2 ML VIAL IVP ONE (13:58)
[2022-10-16] MEDS: SENNOSIDES-DOCUSATE SODIUM 1 EACH TAB PO SCH (19:57)
[2022-10-16] MEDS: ASPIRIN 81 MG PO SCH (19:57)
[2022-10-16] MEDS: HYDROcodone/APAP 5-325MG 1 EACH TAB PO PRN (20:11)
[2022-10-17] MEDS: LACTATED RINGERS 1,000 ML IV SCH ×3 (02:00→08:24)
[2022-10-17] MEDS: HYDROcodone/APAP 5-325MG 1 EACH TAB PO PRN ×3 (05:08→17:43)
[2022-10-17] MEDS: ASPIRIN 81 MG PO SCH ×2 (08:21→22:22)
--- NOTE | 2022-10-17 09:38 | P.PN ---
Subjective Progress Note Date: 10/17/22 This patient is a 51-year-old female who is status post right anterior total hip arthroplasty on 10/16/22. Today is post-operative day #1. The patient is examined bedside with Dr. Andino. She is complaining of moderate pain in the right hip. She has been ambulating with a walker to the bathroom. She has not yet worked with physical therapy. No additional complaints at this time. Vital signs stable. Objective - Vital Signs Vital signs: Vital Signs Temp 97.6 F 10/17/22 01:15 Pulse 80 10/17/22 01:15 Resp 16 10/17/22 01:15 BP 101/66 10/17/22 01:15 Pulse Ox 99 10/17/22 08:03 FiO2 2 10/16/22 14:15 Intake & Output 10/16/22 10/17/22 10/17/22 18:59 06:59 18:59 Intake Total 1550 Output Total 255 135 Balance 1295 -135 Weight 92.1 kg Intake: IV 1550 Output: Drainage 55 135 Right Hip 55 135 Estimated Blood Loss 200 Other: # Voids 1 1 - Exam On examination, the patient is sitting up in bed in no apparent distress. She is alert and oriented 3. On inspection of the right hip, there is a clean, dry, intact. Wound VAC in place that has a good seal at this time. Hemovac drain is removed bedside during exam. Mild swelling of the thigh, thigh is soft and compressible. Motor and sensory function is intact RLE. Right femoral nerve function intact. RLE warm and well perfused. Assessment and Plan Assessment: Status-post right direct anterior total hip arthroplasty 10/16/22. Post-op day #1. Plan: - WBAT right lower extremity with a walker. - Physical therapy for gait and balance training. - Keep Prevena wound vac in place. Do not remove. - 2 doses post-op antibiotics. - Pain medications as needed. Aspirin 81mg BID for DVT prophylaxis. - Internal medicine for kasey-op medical management. - Anticipate discharge home tomorrow.
[2022-10-17 10:20] LABS: Basophils # (A) 0.04 X 10*3/uL (0.00-0.10); Basophils % (A) 0.2 %; Eosinophils # (A) 0 X 10*3/uL (0.04-0.35); Eosinophils % (A) 0 %; HCT 33.1 % (37.2-46.3); HGB 10.9 g/dL (12.0-15.0); Immature Grans, Automated 0.6 %; Lymphocytes # (A) 1.36 X 10*3/uL (0.90-5.00); Lymphocytes % (A) 8.2 %; MCH 31.3 pg (27.0-32.0); MCHC 32.9 g/dL (32.0-37.0); MCV 95.1 fL (80.0-97.0); Mean Platelet Volume 11.4 fL (9.5-12.2); Monocytes # (A) 1.23 X 10*3/uL (0.20-1.00); Monocytes % (A) 7.4 %; NRBC Per 100 WBC 0 /100 WBCS (0.0-0.0); Neutrophils # (A) 13.89 X 10*3/uL (1.80-7.70); Neutrophils % (A) 83.6 %; Platelet Count 207 X 10*3/uL (140-440); RBC 3.48 X 10*6/uL (4.10-5.20); WBC 16.62 X 10*3/uL (4.50-10.00)
[2022-10-17] MEDS ORDERED: traMADol 50 MG TAB PO PRN (12:06)
[2022-10-17] MEDS: CHLORTHALIDONE 25 MG TAB PO SCH (12:18)
[2022-10-17] MEDS: LEVOTHYROXINE 75 MCG TAB PO SCH (12:18)
--- NOTE | 2022-10-17 12:40 | P.CONS ---
History of Present Illness - Reason for Consult Consult date: 10/17/22 - History of Present Illness Oksana Irwin, is a 51-year-old female patient of Dr. Orozco who was admitted to [facility] by Dr. Andino, and underwent right total hip arthroplasty on 10/16/2022 due to severe right hip osteoarthritis that failed conventional treatment. Patient was admitted to surgical floor, medical consultation was requested for management while hospitalized. Past medical history is significant for history of hypertension, history of hypothyroidism, and history of osteoarthritis, patient denies any history of coronary artery disease, congestive heart failure, asthma or COPD. past surgical history is significant for cholecystectomy hysterectomy and bladder surgery, social history is significant for remote history of smoking, no history of alcohol abuse or any kind of illicit drug use. On review of systems patient is alert and oriented 3 in no apparent distress she is sitting up in a chair she is complaining of hip pain otherwise she denies any complaints, there is no fever or chills no headache or dizziness no chest pain no shortness of breath no cough no nausea or vomiting no abdominal pain no diarrhea no blood in the stools no burning with urination no frequency or urgency and no hematuria. Past Medical History Past Medical History: Hypertension, Osteoarthritis (OA), Thyroid Disorder Additional Past Medical History / Comment(s): rt hip pain , hx of tx for UTI History of Any Multi-Drug Resistant Organisms: None Reported Past Surgical History: Bladder Surgery, Cholecystectomy, Hysterectomy, Orthopedic Surgery Additional Past Surgical History / Comment(s): cone biopsy, bladder sling, total right hip 10/16/2022 Past Anesthesia/Blood Transfusion Reactions: No Reported Reaction Smoking Status: Former smoker - Past Family History Father Family Medical History: Cancer Additional Family Medical History / Comment(s): Prostate Mother Family Medical History: Hypertension, Vascular Disorder Medications and Allergies Home Medications Medication Instructions Recorded Confirmed Type Chlorthalidone 25 mg PO DAILY 10/05/22 10/16/22 History Levothyroxine Sodium [Tirosint] 150 mcg PO DAILY 10/05/22 10/16/22 History traMADol HCL 50 mg PO Q6H PRN 10/05/22 10/16/22 History Allergies Allergy/AdvReac Type Severity Reaction Status Date / Time sulfamethoxazole Allergy Severe Anaphylaxis Verified 10/16/22 10:05 [From Bactrim] trimethoprim [From Bactrim] Allergy Severe Anaphylaxis Verified 10/16/22 10:05 Physical Exam Vitals: Vital Signs Temp Pulse Resp BP Pulse Ox FiO2 10/17/22 08:03 99 10/17/22 01:15 97.6 F 80 16 101/66 96 10/16/22 19:28 98.3 F 86 16 104/67 89 L 10/16/22 17:01 85 105/71 94 L 10/16/22 16:46 76 99/66 94 L 10/16/22 16:31 85 115/78 99 10/16/22 16:16 75 108/73 93 L 10/16/22 16:01 86 109/73 95 10/16/22 15:47 79 93/59 94 L 10/16/22 15:31 72 106/70 96 10/16/22 15:16 78 95/63 95 10/16/22 15:01 74 96/63 95 10/16/22 14:46 77 96/63 97 10/16/22 14:15 73 16 119/62 96 2 10/16/22 14:00 72 16 109/58 96 2 10/16/22 13:45 79 16 109/56 97 10/16/22 13:30 90 16 108/54 95 10/16/22 13:17 98.9 F 96 14 117/60 94 L 10/16/22 10:55 82 18 141/93 96 Intake and Output 10/16/22 10/17/22 10/17/22 22:59 06:59 14:59 Output Total 110 80 Balance -110 -80 Output: Drainage 110 80 Right Hip 110 80 Other: # Voids 1 1 Weight 92.1 kg In general patient is alert and oriented x 3 in no distress HEENT head normocephalic and atraumatic Neck is supple no JVD no goiter no lymphadenopathy no carotid bruit Chest examination is clear to auscultation no crackles no wheezing Cardiac exam reveals regular heart sounds S1 and S2 no gallops no murmurs Abdomen is soft nontender no organomegaly with normal bowel sounds Extremity exam reveals no edema no cyanosis or clubbing Neurological examination reveals no gross focal deficits Results CBC & Chem 7: 10/17/22 04:09 Assessment and Plan Plan: Status post right total knee arthroplasty by Dr. Andino on 10/16/2022, pain management and DVT prophylaxis per orthopedic protocol Underlying history of hypertension Underlying history of hypothyroidism Underlying history of osteoarthritis At this time patient was seen and examined on the medical floor Home medications reviewed and reordered For pain management patient is receiving Dilaudid and [place] For DVT prophylaxis she is receiving aspirin twice daily Will follow during this admission for medical management
[2022-10-17] MEDS: SENNOSIDES-DOCUSATE SODIUM 1 EACH TAB PO SCH (22:22)
[2022-10-18] MEDS: HYDROcodone/APAP 5-325MG 1 EACH TAB PO PRN ×2 (03:34→08:27)
[2022-10-18] MEDS: LEVOTHYROXINE 75 MCG TAB PO SCH (06:33)
[2022-10-18 08:11] VITALS: BP 96/65; PULSE 94; RESP 17; TEMP 98.3
[2022-10-18] MEDS: ASPIRIN 81 MG PO SCH (08:26)
[2022-10-18] MEDS: CHLORTHALIDONE 25 MG TAB PO SCH (08:27)
[2022-10-18 09:28] LABS: African American GFR (CKD) 121.6 (60.0-200.0); Albumin 3.4 g/dL (3.8-4.9); Albumin/Globulin Ratio 1.71 (1.60-3.17); Anion Gap 8.2 mmol/L (10.00-18.00); BUN/Creat Ratio 14.32 Ratio (12.00-20.00); Blood Urea Nitrogen 8.4 mg/dL (9.0-27.0); Calcium 8.6 mg/dL (8.7-10.3); Non-African American GFR(CKD) 104.9 (60.0-200.0); Potassium 3.4 mmol/L (3.5-5.5); Total Bilirubin 0.3 mg/dL (0.30-1.20); Total Protein 5.3 g/dL (6.2-8.2)
[2022-10-18] MEDS ORDERED: Potassium Replacement Protocol 1 EACH MISC MISCELLANE PRN (10:03)
--- NOTE | 2022-10-18 10:14 | P.PN ---
Subjective Progress Note Date: 10/18/22 Oksana Irwin, is a 51-year-old female patient of Dr. Orozco who was admitted to [facility] by Dr. Andino, and underwent right total hip arthroplasty on 10/16/2022 due to severe right hip osteoarthritis that failed conventional treatment. Patient was admitted to surgical floor, medical consultation was requested for management while hospitalized. Past medical history is significant for history of hypertension, history of hypothyroidism, and history of osteoarthritis, patient denies any history of coronary artery disease, congestive heart failure, asthma or COPD. past surgical history is significant for cholecystectomy hysterectomy and bladder surgery, social history is significant for remote history of smoking, no history of alcohol abuse or any kind of illicit drug use. On review of systems patient is alert and oriented 3 in no apparent distress she is sitting up in a chair she is complaining of hip pain otherwise she denies any complaints, there is no fever or chills no headache or dizziness no chest pain no shortness of breath no cough no nausea or vomiting no abdominal pain no diarrhea no blood in the stools no burning with urination no frequency or urgency and no hematuria. On 10/18/2022 patient is alert and oriented 3. She currently sitting up in chair. Potassium low at 3.4 potassium replacement protocol ordered. Also ordered urinary analysis to rule out infection due to elevated white blood cell count. Patient denies any acute complaints. Patient denies cough or shortness breath. Patient denies nausea vomiting or diarrhea. Patient remains on aspirin twice a day for DVT prophylaxis. Current vital signs temp 98.3, heart rate 94, blood pressure 96/65 with a pulse ox of 94% on room Objective - Vital Signs Vital signs: Vital Signs Temp 98.3 F 10/18/22 07:31 Pulse 94 10/18/22 07:31 Resp 17 10/18/22 07:31 BP 96/65 10/18/22 07:31 Pulse Ox 95 10/18/22 07:56 FiO2 2 10/16/22 14:15 Intake & Output 10/17/22 10/18/22 10/18/22 18:59 06:59 18:59 Intake Total 1080 500 Balance 1080 500 Intake: Oral 1080 500 Other: Voiding Method Toilet # Voids 3 1 - Exam In general patient is alert and oriented x 3 in no distress HEENT head normocephalic and atraumatic Neck is supple no JVD no goiter no lymphadenopathy no carotid bruit Chest examination is clear to auscultation no crackles no wheezing Cardiac exam reveals regular heart sounds S1 and S2 no gallops no murmurs Abdomen is soft nontender no organomegaly with normal bowel sounds Extremity exam reveals no edema no cyanosis or clubbing Neurological examination reveals no gross focal deficits - Labs CBC & Chem 7: 10/17/22 04:09 10/18/22 05:25 Labs: Abnormal Lab Results - Last 24 Hours (Table) 10/17/22 10/18/22 Range/Units 04:09 05:25 WBC 16.62 H (4.50-10.00) X 10*3/uL RBC 3.48 L (4.10-5.20) X 10*6/uL Hgb 10.9 L (12.0-15.0) g/dL Hct 33.1 L (37.2-46.3) % Immature Gran # 0.10 H (0.00-0.04) X 10*3/uL Neutrophils # 13.89 H (1.80-7.70) X 10*3/uL Monocytes # 1.23 H (0.20-1.00) X 10*3/uL Eosinophils # 0 L (0.04-0.35) X 10*3/uL Potassium 3.4 L (3.5-5.5) mmol/L Carbon Dioxide 29.0 H (20.0-27.5) mmol/L Anion Gap 8.20 L (10.00-18.00) mmol/L BUN 8.4 L (9.0-27.0) mg/dL Glucose 116 H (70-110) mg/dL Calcium 8.6 L (8.7-10.3) mg/dL Total Protein 5.3 L (6.2-8.2) g/dL Albumin 3.4 L (3.8-4.9) g/dL Assessment and Plan Plan: Status post right total knee arthroplasty by Dr. Andino on 10/16/2022, pain management and DVT prophylaxis per orthopedic protocol Underlying history of hypertension Underlying history of hypothyroidism Underlying history of osteoarthritis Hypokalemia potassium replacement protocol Leukocytosis. Patient denies any acute complaints at this time will order urinary analysis to rule out infection At this time patient was seen and examined on the medical floor Home medications reviewed and reordered For pain management patient is receiving Dilaudid and [place] For DVT prophylaxis she is receiving aspirin twice daily Will follow during this admission for medical management
[2022-10-18] MEDS: POTASSIUM CHLORIDE ER 20 MEQ TAB.ER PO SCH ×2 (10:23→11:55)
--- NOTE | 2022-10-18 10:32 | P.DS ---
Providers Expected date of discharge: 10/18/22 Attending physician: Saul Andino Consults: 10/16/22 13:31 Consult Physician Routine Consulting Provider: Leydi James Consult Reason/Comments: medical management Do you want consulting provider notified?: Yes Primary care physician: Rachell Orozco [facility] Course: This is a 51-year-old female who was last seen in our office with complaint of c ontinued right hip pain. The patient has a known history of degenerative arthritis of the right hip and presents to discuss surgical options. After discussion and consideration the patient elects to proceed with total right hip arthroplasty. She is seen preoperatively by Dr. Orozco and cleared for surgery. The patient is admitted to [facility] for total right hip arthroplasty on 10/16/22. The procedure is performed without complication or sequelae. The patient is doing well postoperatively. Vital signs and postoperative labs are stable. The patient is ambulating with a walker with minimal assistance. The patient is examined bedside this morning with Dr. Andino. She is up to the bedside chair. She states her pain in the right hip is well-controlled at this time. She is comfortable discharging home today. She has no new complaints this morning. On examination, patient is sitting up in the bedside chair in no apparent distress. She is alert and orientated 3. On inspection of the right hip, there is a Prevena wound VAC in place that is a good seal this time. There is mild swelling of the thigh, thigh soft and compressible. Motor and sensory function is intact of the right lower extremity. Femoral nerve function intact. Right lower extremity is warm and well-perfused with brisk capillary refill distally. Calf is soft and nontender. The patient is discharged to home today in good condition, pending medical clearance. Please see discharge orders. She should follow-up in the office in one week. Please refer to the med rec for accurate list of medications. Plan - Discharge Summary Discharge Rx Participant: Yes New Discharge Prescriptions: New Aspirin 81 mg PO BID 30 Days #60 tab HYDROcodone/APAP 5-325MG [[place] 5-325] 1 - 2 tab PO Q6HR PRN 7 Days #32 tab PRN Reason: Pain Omeprazole 40 mg PO DAILY 30 Days #30 cap Diclofenac Sodium [Voltaren] 75 mg PO BID 30 Days #60 tab Docusate [Colace] 100 mg PO BID #60 capsule Continue traMADol HCL 50 mg PO Q6H PRN PRN Reason: Pain Levothyroxine Sodium [Tirosint] 150 mcg PO DAILY Chlorthalidone 25 mg PO DAILY Discharge Medication List Chlorthalidone 25 mg PO DAILY 10/05/22 [History] Levothyroxine Sodium [Tirosint] 150 mcg PO DAILY 10/05/22 [History] traMADol HCL 50 mg PO Q6H PRN 10/05/22 [History] Aspirin 81 mg PO BID 30 Days #60 tab 10/18/22 [Rx] Diclofenac Sodium [Voltaren] 75 mg PO BID 30 Days #60 tab 10/18/22 [Rx] Docusate [Colace] 100 mg PO BID #60 capsule 10/18/22 [Rx] HYDROcodone/APAP 5-325MG [[place] 5-325] 1 - 2 tab PO Q6HR PRN 7 Days #32 tab 10/18/22 [Rx] Omeprazole 40 mg PO DAILY 30 Days #30 cap 10/18/22 [Rx] Follow up Appointment(s)/Referral(s): Saul Andino MD [Medical Doctor] - 1 Week Activity/Diet/Wound Care/Special Instructions: Weight-bear to tolerance on operative extremity with a walker. Keep Prevena wound VAC in place until follow-up in the office. Take pain medications as needed. Take aspirin 81 mg twice a day for 4 weeks for blood clot prevention. Follow up in the office at [facility] on 10/22/22 for dressing change. Call the office with any questions or concerns, Discharge Disposition: HOME WITH HOME HEALTH SERVICES
[2022-10-18 11:18] LABS: Basophils # (A) 0.08 X 10*3/uL (0.00-0.10); Basophils % (A) 0.7 %; Eosinophils # (A) 0.09 X 10*3/uL (0.04-0.35); Eosinophils % (A) 0.8 %; HCT 31.9 % (37.2-46.3); HGB 10.4 g/dL (12.0-15.0); Immature Grans, Automated 0.5 %; Lymphocytes # (A) 1.62 X 10*3/uL (0.90-5.00); MCHC 32.6 g/dL (32.0-37.0); MCV 95.2 fL (80.0-97.0); Mean Platelet Volume 12.2 fL (9.5-12.2); Monocytes # (A) 1.17 X 10*3/uL (0.20-1.00); Monocytes % (A) 10.1 %; NRBC Per 100 WBC 0 /100 WBCS (0.0-0.0); Neutrophils # (A) 8.54 X 10*3/uL (1.80-7.70); Neutrophils % (A) 73.9 %; Platelet Count 194 X 10*3/uL (140-440); RBC 3.35 X 10*6/uL (4.10-5.20); RDW 13.3 % (11.5-14.5); WBC 11.56 X 10*3/uL (4.50-10.00)
[2022-10-18 11:39] LABS: Appearance,Urine Clear (Clear); Bilirubin,Urine Negative (Negative); Blood,Urine Negative (Negative); Color,Urine Light Yellow; Glucose,Urine (UA) Negative (Negative); Ketones,Urine Negative (Negative); Leukocyte Esterase,Urine Negative (Negative); Nitrite,Urine Negative (Negative); Protein,Urine Negative (Negative); Specific Gravity,Urine 1.005 (1.001-1.035); Urobilinogen,Urine <2.0 mg/dL (<2.0)
== END 2022-10-18 12:08 | disposition home health service (06) ==
LOC: OR 09:33 → 4SSUR 13:09 → OR 10-18 12:08
PROVIDERS: ATTEND Orthopaedic Surgery
DX: M16.11 Unilateral primary osteoarthritis, right hip (principal); G89.18 Other acute postprocedural pain; I10 Essential (primary) hypertension; E03.9 Hypothyroidism, unspecified; Z79.1 Long term (current) use of non-steroidal anti-inflammatories (NSAID); Z79.899 Other long term (current) drug therapy; Z87.891 Personal history of nicotine dependence; Z79.890 Hormone replacement therapy
CPT/HCPCS: 27130; 64447; 94760 ×2; 97116; 97162; 86900; 86901; 80053; 85025 ×2; 86850; 81003; 73501; C1776; J2250; J1100; J0690 ×2; J2405; J1885; J1170; J1790

== ENCOUNTER → 2023-03-16 | Outpatient (CLI) | payer BC ==
[2023-03-16 10:07] LABS: INR 0.9 (<1.2); Prothrombin Time 10.3 sec (10.0-12.5)
[2023-03-16 10:20] LABS: Partial Thromboplastin Time 21.5 sec (22.0-30.0)
[2023-03-16 16:13] LABS: ALT 21 U/L (8-44); AST 14 U/L (13-35); Albumin 4.3 d/dL (3.8-4.9); Albumin/Globulin Ratio 1.95 Ratio (1.60-3.17); Alkaline Phosphatase 55 U/L (41-126); Appearance,Urine Clear (Clear); BUN/Creat Ratio 22.67 Ratio (12.00-20.00); Bilirubin,Urine Negative (Negative); Blood Urea Nitrogen 13.6 mg/dL (9.0-27.0); Blood,Urine Negative (Negative); Calcium 9.7 mg/dL (8.7-10.3); Carbon Dioxide 30.6 mmol/L (21.6-31.8); Chloride 103 mmol/L (96-109); Color,Urine Yellow (Yellow); Globulin 2.2 d/dL (1.6-3.3); Glucose 107 mg/dL (70-110); Ketones,Urine Negative (Negative); Nitrite,Urine Positive (Negative); PH, Urine 7.5; Potassium 4.7 mmol/L (3.5-5.5); Rheumatoid Factor, Qnt <15 IU/mL (0-15); Sodium 144 mmol/L (135-145); Specific Gravity,Urine 1.014 (1.001-1.030); Total Bilirubin <0.2 mg/dL (0.3-1.2); Total Protein 6.5 d/dL (6.2-8.2); Urobilinogen,Urine 0.2 E.U./DL
[2023-03-16 16:31] LABS: Bacteria,Urine 4+ (None Seen)
[2023-03-16 17:12] LABS: Cyclic Citrull Pep IgG Unit <1.5 U/mL (<=3.9); Cyclic Citrullinated Pep IgG Negative
[2023-03-16 18:24] LABS: LDL Cholesterol,Calculated 92.5 mg/dL (0.0-131.0)
[2023-03-16 18:45] LABS: HCT 40.9 % (37.2-46.3); HGB 13.1 d/dL (12.0-15.0); MCH 29.9 pg (27.0-32.0); MCV 93.4 FL (80.0-97.0); Mean Platelet Volume 11.8 FL (9.5-12.2); NRBC Per 100 WBC 0 X 10*3/uL (0.00-0.01); Platelet Count 245 X 10*3/uL (140-440); RBC 4.38 X 10*6/uL (4.10-5.20); RDW 12.9 % (11.5-14.5); WBC 6.76 X 10*3/uL (4.50-10.00)
== END | disposition home or self-care (01) ==
LOC: LABPAT 07:54
PROVIDERS: ATTEND Orthopaedic Surgery
DX: Z01.812 Encounter for preprocedural laboratory examination (principal); I10 Essential (primary) hypertension; E03.9 Hypothyroidism, unspecified; E55.9 Vitamin D deficiency, unspecified; M16.12 Unilateral primary osteoarthritis, left hip; M25.551 Pain in right hip; R53.83 Other fatigue; Z83.3 Family history of diabetes mellitus; Z82.61 Family history of arthritis
CPT/HCPCS: 80053; 80061; 81001; 83036; 84443; 85027; 85610; 85730; 86200; 86431; 86850; 86900; 86901; 87070

== ENCOUNTER → 2024-10-30 | Outpatient (CLI) | payer BC ==
--- NOTE | 2024-10-30 13:09 | XR ---
EXAMINATION TYPE: XR chest 2V DATE OF EXAM: 10/30/2024 12:36 PM COMPARISON: 04/20/2017 CLINICAL INDICATION: Female, 53 years old with history of R07.89 Other Chest Pain, TECHNIQUE: XR chest 2V view(s) obtained. FINDINGS: The heart size is normal. The pulmonary vasculature is normal. The lungs are clear. No displaced rib fractures are identified. No pneumothorax is evident. IMPRESSION: 1. No acute pulmonary process. [facility], , 10/30/2024 1:07 PM
== END | disposition home or self-care (01) ==
LOC: RADXRMAIN 12:19
PROVIDERS: ATTEND Family Medicine
DX: R07.89 Other chest pain (principal)
CPT/HCPCS: 71046

== ENCOUNTER → 2024-11-14 | Outpatient (CLI) | payer BC ==
--- NOTE | 2024-11-14 13:48 | CT ---
EXAMINATION TYPE: CT abdomen w con CT DLP: 1538.80 mGycm, Automated exposure control for dose reduction was used. DATE OF EXAM: 11/14/2024 1:33 PM COMPARISON: CT abdomen 08/06/2020 CLINICAL INDICATION:Female, 53 years old with history of R10.12 LEFT UPPER QUADRANT PAIN; LUQ pain TECHNIQUE: Standard CT of the abdomen following the administration of 100 cc of Isovue 300 IV contr ast material and oral contrast. Coronal and sagittal reformats were performed. FINDINGS: LOWER CHEST: Unremarkable ABDOMEN LIVER: Unremarkable GALLBLADDER AND BILE DUCTS: The gallbladder is surgically absent. No biliary ductal dilatation. PANCREAS: No pancreatic duct dilatation. No surrounding fluid collections or inflammatory changes steve ntified. The pancreas enhances homogeneously. No parenchymal calcifications. There is increased size of a cystic uncinate process lesion measuring 1.7 cm (series 3, image 38), previously measured 0.9 cm . Additional new cystic uncinate process lesion measuring 0.7 cm (series 3, image 44). No definitive internal enhancement within both these lesions. SPLEEN: Unremarkable. ADRENAL GLANDS: Unremarkable. KIDNEYS AND URETERS: No evidence of hydronephrosis or renal calculus. The kidneys enhance symmetrical ly. Small stable bilateral simple appearing renal cyst. No follow-up recommended. STOMACH AND BOWEL: Stomach and duodenum are unremarkable. Enteric contrast reaches the distal small b owel. No focal bowel wall thickening or surrounding inflammatory changes. Scattered distal colonic di verticula without evidence for acute diverticulitis. No evidence of bowel obstruction. PERITONEUM: No evidence of pneumoperitoneum or free fluid. VASCULATURE: No evidence of aortic aneurysm. MUSCULOSKELETAL: No acute osseous abnormalities. Mild disc degeneration changes are present throughou t the thoracolumbar spine.. Bilateral total hip arthroplasty demonstrated on airport representative radiograph. LYMPH NODES: No evidence for lymphadenopathy. SOFT TISSUE/ABDOMINAL WALL: Small fat filled umbilical hernia. IMPRESSION: 1. No CT evidence for acute abdominal process. 2. Increasing size of pancreatic uncinate process cystic lesion measuring up to 1.7 cm with additiona l new subcentimeter uncinate process cystic lesion. Etiologies include pseudocyst versus side branch intraductal papillary mucinous neoplasms versus serous cystadenoma versus other. Recommend further ev aluation with MR abdomen with IV contrast (pancreatic mass protocol). [facility], , 11/14/2024 1:45 PM
== END | disposition home or self-care (01) ==
LOC: RADCTMAIN 12:24
PROVIDERS: ATTEND Family Medicine
DX: K86.89 Other specified diseases of pancreas (principal)
CPT/HCPCS: 74160; Q9967

== ENCOUNTER → 2024-12-11 | Outpatient (CLI) | payer BC ==
--- NOTE | 2024-12-12 17:01 | MR ---
EXAMINATION TYPE: MR abdomen wo/w con DATE OF EXAM: 12/11/2024 7:24 PM INDICATION: Patient age:Female; 53 years old; Reason for study: K86.2 CYST OF PANCREAS; PHH. COMPARISON: CT abdomen 11/14/2024, 08/06/2020 TECHNIQUE: Multiplanar multi-sequence imaging was performed without and with IV contrast. The patie nt was given 9 ccs of Gadobutrol intravenously and dynamic imaging was performed. Post IV contrast corona btraction images were also submitted for review. FINDINGS: LOWER CHEST: No gross irregularity. ABDOMEN Liver: Peripheral left hepatic lobe vascular shunt. Gallbladder and Bile ducts: Gallbladder is surgically absent. No biliary ductal dilatation.. Pancreas: No pancreatic ductal dilatation or surrounding organized fluid collections. Well-circumscri bed T2 hyperintense thin-walled cystic lesion within the uncinate process measuring 2.1 x 1.6 x 2.3 c m in AP, TV, CC dimensions (series 601, image 24). No distinct septations identified. No mural nodula rity or abnormal enhancement. No definitive communication with the main pancreatic duct. Spleen: Unremarkable. Adrenal glands: Unremarkable. Kidneys: No hydronephrosis. A few bilateral T2 hyperintense subcentimeter nonenhancing cysts. No foll ow up recommended.. Stomach and Bowel: No evidence for bowel obstruction. Scattered descending colon diverticulosis witho ut evidence for acute diverticulitis.. Peritoneum: No evidence of pneumoperitoneum, free fluid, or adenopathy. Vasculature: Unremarkable. No aortic aneurysm. Abdominal wall: Unremarkable. Musculoskeletal: The osseous structures appear intact. IMPRESSION: Pancreatic uncinate process cystic 2.3 cm lesion without mural nodularity or abnormal enhancement. No worrisome features or high risk stigmata. 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 Follow-up MRI in 6 months is recommended. [facility], , 12/12/2024 4:59 PM
== END | disposition home or self-care (01) ==
LOC: RADMRIMAIN 17:56
PROVIDERS: ATTEND Family Medicine
DX: K86.2 Cyst of pancreas (principal)
CPT/HCPCS: 74183; A9585